=== PATIENT | male | born 1960 | race Caucasian/White ===

== ENCOUNTER → 2017-05-17 | Day surgery (SDC) | payer OTHER ==
[~2017-05-17] MED LIST: ACETAMINOPHEN/HYDROcodone 325 MG/5 MG TAB ONE; BUPIVACAINE/EPINEPHRINE 0.5% 50 ML VIAL ONE; DAPS100 PO; EPINEPHrine HCL (1:1000) 1 MG/ML VIAL OTHER ONE; KETOROLAC TROMETHAMINE 30 MG/ML (IVP) VIAL IV PUSH ONE; LEVA500T33 PO; MIDAZOLAM HCL 2 MG/2 ML VIAL ONE; MOME17I; MORPHINE SULFATE 4 MG/ML INJ ONE; ONDANSETRON HCL 4 MG/2 ML VIAL IV PUSH ONE; PROPOFOL 200 MG/20 ML AMP IV ONE; TRIAMCINOLONE ACETONIDE 40 MG/ML VIAL ONE; VIAG50TA PO; ceFAZolin INJ 1,000 MG VIAL ONE
--- NOTE | 2017-05-17 22:44 | MP ---
cc: MAKEDA LEE M.D. 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 Chondromalacia of the lateral femoral condyle. SURGEON Claudio Lee MD PRE WAVE ASSEMBLER JAMARI Marx PRE WAVE ASSEMBLER JMAARI Suh The surgical procedure was assisted by my Advanced Registered Nurse Practitioner. My TRACTOR TRAILER DRIVER presence was necessary throughout this case for the manipulation and positioning of the surgical extremity. My TRACTOR TRAILER DRIVER was assisting me throughout the duration of this procedure. The skill set of an Advance Registered Nurse Practitioner was medically necessary to complete this procedure. During the surgical case, the dental lab technician was working at the back table and the Advance Registered Nurse Practitioner was directly assisting me. PROCEDURES Right knee arthroscopic partial medial meniscectomy and partial lateral meniscectomy with chondroplasty of the medial femoral condyle, patellofemoral joint and lateral femoral condyle. ESTIMATED BLOOD LOSS Minimal TOURNIQUET TIME Zero minutes ANESTHESIA General anesthesia PROCEDURE IN DETAIL The patient was brought back to the operative theater. General anesthesia was administered. The patient received intravenous Ancef. The right lower extremity was prepped and draped in usual sterile fashion. We started with standard inferolateral portal and then an inferomedial portal under spinal needle visualization. We found moderate synovitis in the suprapatellar pouch. The patellofemoral joint had diffuse grade 3 chondromalacia with multiple areas of hair on end type of findings, especially on the patella. The trochlea had areas of unstable cartilage, especially along the medial aspect. The cartilage did seem rather thin and was rated grade 4 wearing. Medial femoral condyle had diffuse grade 3 chondromalacia, although only had small areas of unstable segments of cartilage. There was some grade 2 chondromalacia at the medial tibial plateau. We used an oscillating shaver to perform a chondroplasty of the medial femoral condyle only removing a small amount of the cartilage. We found a complex tear of the medial meniscus which was in the junction around the posterior horn and body. We started using an oscillating shaver and then a meniscal biter to further characterize this and we saw that this cleavage went all the way back to the meniscal capsular junction. We did need to change to a different shaver in order to assist with our meniscectomy. This was more of an aggressive shaver with teeth. Ultimately, we resected approximately 35% of the meniscus to make sure there were no further unstable segments to the medial meniscus. The anterior cruciate ligament was found to be intact. The lateral compartment showed fairly focal chondromalacia which was grade 3 of the lateral femoral condyle in the mid aspect with several areas of unstable cartilage. We did need to debride these with an oscillating shaver and then we used an oscillating shaver to perform a partial lateral meniscectomy of an inner edge tear of the lateral meniscus which was at the inner periphery and we resected approximately 10% of the lateral meniscus. We confirmed there were no loose bodies in the lateral gutters and no loose bodies in the suprapatellar pouch. We evacuated the excess fluid and then gave interarticular injection with 30 mL of 0.25% Marcaine followed by 40 mg with Kenalog. The arthroscopic portals were closed with 2-0 Vicryl followed by 3-0 nylon. POSTOPERATIVE PLAN Weight bear as tolerated and early range of motion. MD HECTOR Olmedo/ /2:27 PM /10:32 PM MTDD
== END | disposition home or self-care (01) ==
LOC: ESDC 12:05
PROVIDERS: ATTEND Orthopaedic Surgery
DX: S83.231A Complex tear of medial meniscus, current injury, right knee, initial encounter (principal); S83.281A Other tear of lateral meniscus, current injury, right knee, initial encounter; M94.261 Chondromalacia, right knee
CPT/HCPCS: 01400; 29880; J0171; J0690; J1885; J2250; J2270; J2405; J3010; J3301